=== PATIENT | male | born 1990 | race Two or more races ===

== ENCOUNTER 2024-05-11 22:17 | Emergency (ER) | payer MEDICAID, OTHER ==
[~2024-05-11] VITALS: Ht 182.9 cm; Wt 85.3 kg
[2024-05-12] MEDS: TDAP DIPH,PERTUSS,TET VAC/PF 0.5 ML DISP.SYRIN IM ONE (00:39)
[2024-05-12] MEDS: NEOMY/BACITRA/POLYMYXIN B OINT UD PACKET TP ONE (00:48)
[2024-05-12] MEDS ORDERED: ACETAMINOPHEN 500 MG TABLET ONE (00:49)
[2024-05-12] MEDS: ACETAMINOPHEN 500 MG TABLET PO ONE (00:51)
[2024-05-12 01:21] VITALS: BP 114/70; TEMP 98; O2SAT 98
== END 2024-05-12 01:21 | disposition home or self-care (01) ==
LOC: ER 22:17
DX: L92.9 Granulomatous disorder of the skin and subcutaneous tissue, unspecified (principal); J45.909 Unspecified asthma, uncomplicated; F17.200 Nicotine dependence, unspecified, uncomplicated; Z88.7 Allergy status to serum and vaccine
CPT/HCPCS: 73620; A4606; A4663; A9150

== ENCOUNTER 2025-04-14 00:32 | Emergency (ER) | payer OTHER ==
[~2025-04-14] VITALS: Ht 182.9 cm; Wt 83.9 kg
[2025-04-14 00:32] VITALS: BP 128/55; O2SAT 98
[2025-04-14 01:10] VITALS: BP 125/62
== END 2025-04-14 01:32 | disposition home or self-care (01) ==
LOC: ER 01:32
DX: B07.0 Plantar wart (principal); F17.200 Nicotine dependence, unspecified, uncomplicated; J45.909 Unspecified asthma, uncomplicated; Z88.7 Allergy status to serum and vaccine
CPT/HCPCS: A4606; A4663